=== PATIENT | female | born 1985 | race American Indian/Alaskan Native ===

== ENCOUNTER 2024-07-16 04:48 | Emergency (ER) | payer BC, OTHER ==
[~2024-07-16] VITALS: Ht 162.6 cm; Wt 82.0 kg
[~2024-07-16 04:48] MED LIST: ALBUTEROL2.5 MG/0.5 INH; CEPACOL SORE T1 EAC5 MM
[2024-07-16] MEDS ORDERED: KETOROLAC TROMETHAMINE 30 MG/ML VIAL IM ONE (05:30)
[2024-07-16] MEDS ORDERED: CEPACOL SORE T1 EAC5 MM (05:52)
[2024-07-16 06:16] VITALS: BP 133/74
== END 2024-07-16 06:18 | disposition home or self-care (01) ==
LOC: ED 04:48
DX: J02.9 Acute pharyngitis, unspecified (principal); J45.909 Unspecified asthma, uncomplicated; F17.200 Nicotine dependence, unspecified, uncomplicated; Z79.899 Other long term (current) drug therapy
CPT/HCPCS: 71045; 87651; 96372; 99283; J1885